=== PATIENT | female | born 1950 | race Caucasian/White ===

== ENCOUNTER 2023-06-14 12:07 | Emergency (ER) | payer OTHER, SELFPAY ==
[2023-06-14] VITALS (9 sets, daily range): BP systolic 129–173; BP diastolic 66–80; PULSE 59–95; RESP 18; TEMP 36.8–36.9; O2SAT 96–98; BMI 35.8
--- NOTE | ~2023-06-14 | CT_ITS ---
EXAMINATION: CT HEAD WITHOUT CONTRAST CLINICAL INFORMATION: Dizziness. COMPARISON: No relevant prior imaging. TECHNIQUE: Contiguous axial imaging was performed from the skull base to vertex without intravenous administration of contrast. This CT examination was performed using dose optimization techniques as appropriate, variously including the following: *Automated exposure control *Adjustment of mA and/or kV according to patient size (this includes techniques or standardized protocols for targeted exams where dose is matched to indication/reason for exam; i.e. extremities or head) *Use of iterative reconstruction technique DLP: 560 mGy-cm FINDINGS: There is no acute intracranial hemorrhage or abnormal extra-axial collection. No intracranial mass effect or midline shift. Lateral and third ventricles are normal. No hydrocephalus. Merritt-white matter differentiation is preserved and there is no evidence of acute territorial infarct. The calvarium and skull base are intact. Mastoid air cells and middle ear cavities are well aerated. Mild to moderate paranasal sinus disease primarily affecting the ethmoid air cells. CT/CT head/brain wo IV con IMPRESSION: Unremarkable CT scan of the head. No evidence of acute territorial infarct or hemorrhage.
--- NOTE | 2023-06-14 12:46 | ED.DIZZY ---
HPI - Dizziness General Chief Complaint: Dizziness Stated Complaint: dizzy spells Time Seen by Provider: 06/14/23 16:58 Source: patient Mode of arrival: ambulatory Limitations: no limitations History of Present Illness HPI Narrative: 72-year-old female with past medical history of vertigo presents to the ED for dizzy spells for the past 3 weeks describes as room spinning. Patient states she at times she will have ringing of the ear and dizziness while having change in head position. Patient denies any slurred speech, facial droop, paralysis of extremities, fever, chills, chest pain, shortness of breath, or any falls. Related Data Previous Rx's Medication Instructions Recorded cephalexin 500 mg capsule 500 mg PO QID 7 days #28 caps 06/14/23 meclizine 25 mg tablet 25 mg PO BID PRN dizziness #20 tabs 06/15/23 Allergies Allergy/AdvReac Type Severity Reaction Status Date / Time No Known Allergies Allergy Unverified 06/20/20 15:05 Review of Systems Review of Systems: Dizziness, ringing in the ears Yes all other systems are reviewed and are negative [facility] Social History Social History Alcohol intake: never Advance Directives: No Advance Directives Information Provided: No Physical Exam Vital Signs: Vital Signs: Last Vital Signs Temp 98.3 F 06/14/23 16:44 Pulse 72 06/14/23 19:31 Resp 18 06/14/23 16:44 BP 129/68 06/14/23 19:31 Pulse Ox 96 06/14/23 16:44 O2 Del Method Room Air 06/14/23 16:44 BMI result Body Mass Index 35.8 Const: General: cooperative, healthy appearing, comfortable, no acute distress, well developed, alert, awake and Physically active Orientation/consciousness: oriented to person, oriented to place, oriented to time and patient oriented x3 HEENT: Head: Yes normal to inspection, Yes No palpable skull fracture present, Yes normocephalic, Yes atraumatic and No abrasion Ears: hearing grossly normal bilaterally, external ears normal, TM's normal bilaterally, TM normal on the right, TM normal on the left, EAC's normal, mastoids normal and no periauricular adenopathy Eyes: Other: Positive for horizontal nystagmus to the left. Negative for vertigo nystagmus. General: appearance normal, both eyes and all related structures Neck: Neck: Yes normal visual inspection, Yes full ROM, Yes no lymphadenopathy, Yes no meningeal signs, Yes trachea midline, Yes supple, No anterior neck swelling and No tender Chest: Chest palpation & inspection: normal inspection of the chest and normal palpation of entire chest wall Resp: Effort & Inspection: normal respiratory effort and able to speak in complete sentences Auscultation: clear to auscultation bilaterally Cardio: Jugular venous distension: no JVD Heart sounds: S1 normal heart sound present and S2 normal heart sound present GI: Inspection: Yes normal to inspection and No abdominal wall ecchymosis Palpation (GI): Soft to palpation, not firm, nontender, no guarding and not rigid : General: Yes no CVA tenderness Back/Spine/Pelvis: Back: no CVA tenderness Skin: General skin exam: no rashes or lesions noted and elasticity normal Neuro: General: oriented to person, oriented to place, oriented to time, patient oriented x3, gait normal, tone normal, moves all extremities, Normal light touch and pain sensation, no meningeal signs, no focal motor deficits, CN's II-XI intact bilaterally and normal sensation to monofilament Extrem: General: Yes normal to inspection and Yes full ROM Psych: Appearance: grossly normal, well kempt and not disheveled Course Course Course Narrative: RME - 72 y/o female presenting to the ER evaluation of dizzy spells that have been happening for the last 3 weeks. Episodes last up to 6 hours, usually preceded by a headache. Feels like room is spinning. Has been feeling run down, no energy, body aches. Vomited Wednesday due to the dizziness. No hx vertigo. No tingling. +numbness in the hands in the mornings. Poor PO intake with 10 lbs weight loss in last 3 weeks. Plan: labs, EKG, CT head, orthostatic VS Medications Administered Discontinued Medications Generic Name Dose Route Start Last Admin Trade Name Freq PRN Reason Stop Dose Admin Sodium Chloride 1,000 mls @ 999 mls/hr 06/14/23 17:48 06/14/23 18:57 Ns IV 06/14/23 18:48 Infused .Q1H1M STA Infusion Sodium Chloride 1,000 mls @ 999 mls/hr 06/14/23 18:02 06/14/23 18:58 Ns IV 06/14/23 19:02 Infused .Q1H1M STA Infusion Meclizine HCl 50 mg 06/14/23 17:48 06/14/23 17:53 Meclizine Hcl 25 Mg Tablet PO 06/14/23 17:49 50 mg ONCE ONE Administration Medical Decision Making Medical Decision Making [facility] Narrative: 72-year-old female with history of vertigo in the past presents to ED for dizziness bilateral ringing in the ear intermittently for the past 3 weeks. Patient denies any neuro deficits. Patient denies any head trauma, fever, chills, chest pain, shortness of breath. NIH Score. Sitting to standing position systolic blood pressure dropped by 20. Will give IV fluids and meclizine re-evaluate. Patient's troponin negative. Head CT scan normal. EKG negative STEMI 7:54pm: After 2 L of fluid patient repeat orthostatic hypertension positive. While supine blood pressure systolic 173 when standing blood pressure systolic 123. Patient was recommended admission but patient wanted to sign out against medical advice knowning risk of , dehydration, heart failure, myocardial infarction and other concerning symptoms. Patient was informed to return to the ED immediately if symptoms worsen. Patient states she has to go home to take care of a puppy and will come back tomorrow for admission. Patient signed against medical advice. Differential Diagnosis Differential Diagnoses: The differential diagnosis associated with the presentation includes (Orthostatic hypotension, myocardial infarction, stroke, brain bleed) Admission/Observation Consideration of admission/observation: Escalation of care including admission/observation considered Lab Data 06/14/23 13:38 06/14/23 13:38 Labs: Lab Results 06/14/23 06/14/23 06/14/23 Range/Units 13:32 13:38 17:26 WBC 8.0 (4.8-10.8) X10*3/uL RBC 5.45 (4.20-5.50) X10*6/uL Hgb 14.9 (12.0-16.0) g/dl Hct 45.1 (37.0-47.0) % MCV 82.8 (80.0-98.0) fL MCH 27.3 (27.0-33.0) pg MCHC 33.0 (31.0-35.0) g/dl RDW 13.4 (11.0-16.0) % Plt Count 205 (160-400) X10*3/uL MPV 10.4 (9.4-12.3) fL Immature Gran % (Auto) 0.3 (0.0-0.4) % Neut % (Auto) 68.2 (45-73) % Lymph % (Auto) 18.3 L (20-40) % [place] % (Auto) 7.8 (2-11) % Eos % (Auto) 4.8 H (0-4) % Baso % (Auto) 0.6 (0-2) % Lymph # (Auto) 1.5 (1.2-4.9) X10*3/uL [place] # (Auto) 0.6 (0.1-1.2) X10*3/uL Eos # (Auto) 0.4 (0.0-0.4) X10*3/uL Baso # (Auto) 0.1 (0.0-0.2) X10*3/uL Abs Immat Gran (auto) 0.02 (0.00-0.03) X10*3/uL Absolute Neuts (auto) 5.4 (2.0-8.3) x10*3/uL Absolute Nucleated RBC 0.000 (0.0-0.012) X10*3/uL Nucleated RBC % (auto) 0.0 (0.0-0.2) /100WBC Sodium 142 (135-145) mmol/L Potassium 4.4 (3.3-5.1) mmol/L Chloride 107 (96-108) mmol/L Carbon Dioxide 28 (22-29) mmol/L Anion Gap 11 L (12-20) BUN 14 (9-16) mg/dL Creatinine 0.84 (0.5-1.4) mg/dL Estim Creat Clear Calc 74.6 Estimated GFR > 60 Random Glucose 116 H (60-115) mg/dL Calcium 9.6 (8.4-10.2) mg/dL Magnesium 2.1 (1.6-2.6) mg/dL Total Bilirubin 0.9 (0.0-1.0) mg/dL Direct Bilirubin 0.4 (0.0-0.5) mg/dL AST 20 (5-31) U/L ALT 17 (0-31) U/L Alkaline Phosphatase 125 H (39-117) U/L Troponin I High Sens < 2.7 (<3.5-17.0) ng/L Total Protein 6.8 (6.5-8.0) g/dL Albumin 4.0 (3.5-5.0) g/dL Urine Color Yellow Urine Appearance Clear Urine pH 5.5 (5.0-9.0) Ur Specific [place] 1.010 (1.005-1.025) Urine Protein Negative (Neg-Trace) mg/dL Urine Glucose (UA) Negative (Negative) mg/dL Urine Ketones Negative (Negative) mg/dL Urine Blood Negative (Negative) Urine Nitrite Negative (Negative) Ur Leukocyte Esterase Small (1+) H (Negative) Urine RBC 0-2 (0-2) /HPF Urine WBC 11-20 H (0-5) /HPF Ur Squamous Epith Cells 3-5 (0-2) /HPF Urine Bacteria Trace (None Seen) Hyaline Casts 0-2 (0-2) /LPF COVID-19 (ARMANDO) Negative (Negative) COVID-19 Clin Com See Note Independent Interpretation I performed an independent interpretation of an: EKG (Normal sinus rhythm. Ventricular rate 62. TX interval 194. Caris 84. QTC 414. Negative STEMI) and CT Scan Radiology Impression Discussion of test interpretation with radiology: I have reviewed the radiologist's reading. External Record Review External record reviewed: Other (prior visits) Discharge Plan Discharge Clinical Impression: Orthostatic hypotension Patient Disposition: Left Against Medical Advice Instructions: Urinary Tract Infection in Women (ED), Hypotension (ED), Dizziness (ED) Additional Instructions: You are signing out against medical advice. Return to the ED immediately for any dizziness, slurred speech, facial droop, paralysis of extremities, chest pain, shortness of breath, abdominal pain, loss of vision, inability to walk, palpitations, flank pain, fever, chills, hematuria. or any other concerning symptoms. Please follow-up with your primary care provider immediately. Prescriptions: New cephalexin 500 mg capsule 500 mg PO QID 7 Days Qty: 28 0RF No Action meclizine 25 mg tablet 25 mg PO BID PRN (Reason: dizziness) Qty: 20 0RF Stand Alone Forms: Against Medical Advice Interventions: ED Discharge Assessment Last Done: 06/14/23 20:10 Discharge Date/Time: 06/14/23 20:12 Print Language: Georgian
--- NOTE | 2023-06-14 12:47 | ECG_ITS ---
Test Reason : dizziness Blood Pressure : / mmHG Vent. Rate : 062 BPM Atrial Rate : 062 BPM P-R Int : 194 ms QRS Dur : 084 ms QT Int : 408 ms P-R-T Axes : 020 -16 086 degrees QTc Int : 414 ms Normal sinus rhythm Inferior infarct , age undetermined Cannot rule out Anterior infarct , age undetermined Abnormal ECG When compared with ECG of 23-NOV-2012 12:32, Inferior infarct is now Present Referred By: Chelo Bonner Electronically Signed By:CIARRA ESTRELLA
[2023-06-14 13:43] LABS: MANUAL DIFF FLAG NO
[2023-06-14 13:49] LABS: Basophils Absolute Auto 0.1 X10*3/uL (0.0-0.2); Basophils Percent Auto 0.6 % (0-2); Eosinophils Absolute Auto 0.4 X10*3/uL (0.0-0.4); Eosinophils Percent Auto 4.8 % (0-4); Hematocrit 45.1 % (37.0-47.0); Hemoglobin 14.9 g/dl (12.0-16.0); Imm Gran Abs Auto 0.02 X10*3/uL (0.00-0.03); Imm Gran Pct Auto 0.3 % (0.0-0.4); Lymphocytes Absolute Auto 1.5 X10*3/uL (1.2-4.9); Lymphocytes Percent Auto 18.3 % (20-40); Mean Corpuscular Hemoglobin 27.3 pg (27.0-33.0); Mean Corpuscular Volume 82.8 fL (80.0-98.0); Mean Platelet Volume 10.4 fL (9.4-12.3); Monocytes Absolute Auto 0.6 X10*3/uL (0.1-1.2); Monocytes Percent Auto 7.8 % (2-11); Neutrophils Absolute Auto 5.4 x10*3/uL (2.0-8.3); Neutrophils Percent Auto 68.2 % (45-73); Platelet Count 205 X10*3/uL (160-400); Red Blood Count 5.45 X10*6/uL (4.20-5.50); Red Cell Distribution Width 13.4 % (11.0-16.0)
[2023-06-14 13:59] LABS: IDNOW Serial# 08D9AD1C
[2023-06-14 14:00] LABS: COVID-19 Test Negative (Negative)
[2023-06-14 14:01] LABS: Alanine Aminotransferase 17 U/L (0-31); Alkaline Phosphatase 125 U/L (39-117); Anion Gap 11 (12-20); Aspartate Amino Transferase 20 U/L (5-31); Bilirubin Direct 0.4 mg/dL (0.0-0.5); Bilirubin Total 0.9 mg/dL (0.0-1.0); Blood Urea Nitrogen 14 mg/dL (9-16); Calcium 9.6 mg/dL (8.4-10.2); Carbon Dioxide 28 mmol/L (22-29); Chloride 107 mmol/L (96-108); Creatinine Clr Calc Pharmacy 74.6; Estimated Glomerular Filt Rate > 60; Glucose Random 116 mg/dL (60-115); Magnesium 2.1 mg/dL (1.6-2.6); Potassium 4.4 mmol/L (3.3-5.1); Sodium 142 mmol/L (135-145); Total Protein 6.8 g/dL (6.5-8.0)
[2023-06-14 14:08] LABS: Troponin-I High Sensitivity < 2.7 ng/L (<3.5-17.0)
[2023-06-14 17:34] LABS: Appearance Urine Clear; Color Urine Yellow; Glucose Urine UA Negative (Negative); Leukocyte Esterase Urine Small (1+) (Negative); Nitrite Urine Negative (Negative); PH 5.5 (5.0-9.0); UMIC TRIGGER UACC YES; Urine Blood Negative (Negative); Urine Ketones Negative (Negative); Urine Protein Negative (Neg-Trace)
[2023-06-14 17:37] LABS: Bacteria Urine Trace (None Seen); Hyaline Casts Urine 0-2 /LPF (0-2); RBC Urine 0-2 /HPF (0-2); UACC Culture Trigger YES
[2023-06-14] MEDS: Meclizine HCl 25 MG TABLET 50 MG PO (17:53)
[2023-06-14] MEDS: 0.9 % Sodium Chloride 1,000 ML 999 ML IV ×2 (17:54→18:20)
--- NOTE | 2023-06-14 19:38 | PC.NURSE ---
Orthostatic vital signs completed and entered into EMR. SUREKHA Peguero aware of results.
== END 2023-06-14 20:12 | disposition left against medical advice (07) ==
PROVIDERS: Physician Assistant; Emergency Provider Emergency Medicine; PCP Internal Medicine
DX: I95.1 Orthostatic hypotension (principal); R42 Dizziness and giddiness; H93.19 Tinnitus, unspecified ear; R94.31 Abnormal electrocardiogram [ECG] [EKG]; Z20.822 Contact with and (suspected) exposure to COVID-19; Z20.828 Contact with and (suspected) exposure to other viral communicable diseases; Z79.899 Other long term (current) drug therapy
CPT/HCPCS: 36415; 70450; 80048; 80076; 81001; 83735; 84484; 85025; 87086; 87635; 93005; 96360; 99284; 99285

== ENCOUNTER 2023-06-15 07:50 | Emergency (ER) | payer OTHER, MEDICARE, MEDICAID, SELFPAY ==
[2023-06-15 07:55] VITALS: BP 178/85; PULSE 68; RESP 18; TEMP 37; O2SAT 97; BMI 37.6
--- NOTE | 2023-06-15 07:59 | ED.GENADULT ---
HPI - General Adult General Chief complaint: General Medical Stated complaint: Low blood pressure Time Seen by Provider: 06/15/23 07:59 Source: patient and old records reviewed Mode of arrival: ambulatory Limitations: no limitations History of Present Illness HPI narrative: 72 yo female with history of vertigo presents back to the ER after leaving AMA last night. She was seen for dizzy spells yesterday. She had a workup including a negative head CT, unremarkable EKG and labs. She did have a 50 point drop in her SBP from 170 to 120 with standing. Admission was recommended however she declined and left AMA due to animal care at home. she denies any recurrent dizzy spells. She still reports some brain fog she denies any chest pain, shortness of breath, nausea, vomiting, abdominal pain, weakness, numbness, tingling. She states the dizzy spells have been on and off for the last 3 weeks. The last episode was on Wednesday MD complaint: intermittent dizziness Onset (ago): week(s) Pain Consistency: intermittent Relieving factors: none Exacerbating factors: none Associated symptoms: denies other symptoms Treatments prior to arrival: none Related Data Previous Rx's Medication Instructions Recorded cephalexin 500 mg capsule 500 mg PO QID 7 days #28 caps 06/14/23 meclizine 25 mg tablet 25 mg PO BID PRN dizziness #20 tabs 06/15/23 Allergies Allergy/AdvReac Type Severity Reaction Status Date / Time No Known Allergies Allergy Unverified 06/20/20 15:05 Review of Systems Review of Systems: Yes all other systems are reviewed and are negative [facility] Social History Social History Alcohol intake: never Advance Directives: No Advance Directives Information Provided: No Physical Exam ED Vital Signs: Vital Signs - 24 hr 06/15/23 07:55 06/15/23 08:39 06/15/23 08:39 Temperature 98.6 F Pulse Rate 68 57 57 Respiratory Rate 18 16 Blood Pressure 178/85 H 152/68 H 152/68 H Pulse Oximetry 97 96 Oxygen Delivery Method Room Air Room Air 06/15/23 08:39 06/15/23 08:41 Temperature Pulse Rate 69 72 Respiratory Rate Blood Pressure 156/76 H 151/77 H Pulse Oximetry Oxygen Delivery Method BMI result Body Mass Index 37.6 Appearance: Alert. Oriented X3. No acute distress. Head: normocephalic, atraumatic. Eyes: Pupils equal, round and reactive to light. no nystagmus. ENT: Pharynx normal. No tonsillar swelling or exudate. Neck: Normal inspection. Neck supple. CVS: Normal heart rate and rhythm. Pulses normal. Respiratory: No respiratory distress. Breath sounds normal. Abdomen: Soft and nontender. +BS x4 Skin: Skin warm and dry. Normal skin color. Normal skin turgor. No rashes. Extremities: No lower extremity edema. No joint swelling. Neuro/psych: Oriented X 3. No motor deficit. No sensory deficit. CN II-XII intact. Normal speech and cognition. Steady gait and nonfocal. Normal [id number] and [id number] bilaterally Medical Decision Making Medical Decision Making MDM Narrative: 72-year-old female presents to the ER for evaluation of orthostatic hypotension that was found yesterday. She had 50 point drop in her systolic blood pressures once going from lying to standing. Today she is hemodynamically stable with negative orthostatic vital signs. She still reports some brain fog but otherwise is nonfocal has NIH of 0. At this time she is stable for discharge home and follow-up with her primary care doctor for further evaluation and treatment. She was given strict return precautions. Will give trial of meclizine for her dizziness episodes. None in the last few days. Differential Diagnosis Differential Diagnoses: The differential diagnosis associated with the presentation includes Orthostatic hypotension, vertigo, electrolyte abnormality, dehydration, cardiac arrhythmia, less likely cerebellar stroke Admission/Observation Consideration of admission/observation: Escalation of care including admission/observation considered External Record Review External record reviewed: Outpatient record, Prior outpatient labs and Prior outpatient radiology Prescription Management I considered prescription management with: Other (meclizine) Critical Care Time Critical Care Time Critical Care Time: No Discharge Plan Discharge Clinical Impression: Dizziness Patient Disposition: Home, Self-Care Instructions: Dizziness (ED) Additional Instructions: Her blood pressures today were the same in all positions. This is reassuring. You not require hospitalization at this time Recommend trial of meclizine as needed for dizzy spells. When you change positions do so slowly. Make sure eating and drinking well at home. Rest and stay hydrated. Follow-up with your doctor. If you develop new or worsening symptoms call 911 or come back to the ER for further evaluation. Prescriptions: New meclizine 25 mg tablet 25 mg PO BID PRN (Reason: dizziness) Qty: 20 0RF No Action cephalexin 500 mg capsule 500 mg PO QID 7 Days Qty: 28 0RF
[2023-06-15 08:39] VITALS: BP 152/68; BP 156/76; PULSE 57; PULSE 69; RESP 16; O2SAT 96
[2023-06-15 08:41] VITALS: BP 151/77; PULSE 72
== END 2023-06-15 09:22 | disposition home or self-care (01) ==
PROVIDERS: Emergency Provider Emergency Medicine; PCP Internal Medicine
DX: R42 Dizziness and giddiness (principal)
CPT/HCPCS: 99283

== ENCOUNTER 2025-02-17 05:54 | Emergency (ER) | payer OTHER, SELFPAY ==
--- NOTE | ~2025-02-17 | CT_ITS ---
CLINICAL HISTORY: fall +head strike CT head without contrast Comparison: CT/SR - CT HEAD/BRAIN WO IV CON - 06/14/23 13:08 EDT Findings: No evidence of acute territorial infarct. No significant white matter disease. Mild volume loss is noted. No hydrocephalus. No hemorrhage, mass effect, mass lesion or midline shift. No abnormal extra-axial fluid. No calvarial fracture. Paranasal sinuses and mastoid air cells are clear. Impression: No evidence of an acute intracranial process. Chronic changes as detailed. This document has been electronically signed by: Cedric Freeman MD on 02/17/2025 07:52:42
--- NOTE | ~2025-02-17 | CT_ITS ---
CLINICAL HISTORY: fall +head strike CT cervical spine without contrast Comparison: None Findings: There is straightening of the normal cervical lordosis. No fracture or acute malalignment. Multilevel degenerative changes with disc space narrowing throughout the cervical spine. The facet joints are normally imbricated. No prevertebral soft tissue edema. Lung apicies demonstrate no acute process. Multiple thyroid nodules noted. Impression: Multilevel degenerative changes without evidence of acute fracture or acute malalignment. Multiple thyroid nodules. Dedicated outpatient thyroid ultrasound recommended if not already performed elsewhere. This document has been electronically signed by: Cedric Freeman MD on 02/17/2025 07:30:22
[2025-02-17 06:00] VITALS: BP 145/73; PULSE 72; RESP 18; TEMP 36.8; O2SAT 98; BMI 36.3
--- NOTE | 2025-02-17 06:23 | ED.FALL ---
HPI - Fall General Chief Complaint: Fall Stated Complaint: fall w/ head strike few weeks ago Time Seen by Provider: 02/17/25 06:22 Source: patient Mode of arrival: ambulatory Limitations: no limitations History of Present Illness ED Provider: Dr. Donnie Wolf HPI Narrative: 74-year-old female with a history of hyperlipidemia who presents emergency department for evaluation of persistent headaches after head injury which occurred 4 weeks prior. The patient states that she walked into her garage, tripped and fell striking the left side of her head on a cement wall. She states she felt a cracking sensation in her head but had no loss of consciousness. She states that since that fall she has had daily headaches which will last hours, are relieved by aspirin 325 mg orally, associated with nausea without vomiting, occasional blurred vision. She denied numbness, weakness, feeling off balance. The patient was seen at an urgent care clinic yesterday and they advised her to go to the emergency department to get a CT scan of the brain to rule out a possible subdural hematoma. Therefore the patient came to the emergency department to be seen today. Patient has no headache at this time. She denied fever, chills, rhinorrhea, sore throat, cough, chest pain, shortness of breath, myalgias, arthralgias Related Data Previous Rx's ?Medication ?Instructions ?Recorded cephalexin 500 mg capsule 500 mg PO QID 7 days #28 caps 06/14/23 meclizine 25 mg tablet 25 mg PO BID PRN dizziness #20 tabs 06/15/23 Allergies Allergy/AdvReac Type Severity Reaction Status Date / Time No Known Allergies Allergy Verified 02/17/25 06:05 Review of Systems Review of Systems: Yes all other systems are reviewed and are negative [facility] Past Medical History [facility] Narrative: Social history: She denies tobacco, alcohol and drug use Social History Social History Alcohol intake: never Smoked in Last 30 Days: No Use of substances other than those prescribed or required for medical reasons: No Advance Directives: No Advance Directives Information Provided: No Physical Exam Vital Signs: Vital Signs: Last Vital Signs Temp 98.2 F 02/17/25 09:23 Pulse 65 02/17/25 09:23 Resp 18 02/17/25 09:23 BP 151/68 H 02/17/25 09:23 Pulse Ox 96 02/17/25 09:23 O2 Del Method Room Air 02/17/25 09:23 BMI result Body Mass Index 36.3 Vital signs revealed an elevated blood pressure 145/73 otherwise unremarkable Exam: General: Awake, alert in no distress Head: Normocephalic, atraumatic EENT: PERRL, Lids normal, sclera normal, conjunctiva normal, nose normal , ears normal, throat without erythema or exudates Neck: Supple, no adenopathy Lung: breath sounds symmetric, no wheezing, rales or rhonchi Chest: symmetric movement, nontender Heart: regular rate and rhythm, normal S1, S2 no murmurs or rubs Abdomen: soft, non-tender, nondistended, normal bowel sounds Back: no vertebral tenderness, no CVAT Extremities: no deformities, moves all extremities symmetrically Neuro: General: Awake, alert, oriented, normal speech Cranial nerves: Cranial nerves intact Strength: 5/5 symmetric strength, moves all extremities symmetrically Cerebellar: Normal prdwby-qu-whar-to-finger, rapid finger movement Psych: Pleasant, cooperative Medical Decision Making Medical Decision Making MDM Narrative: 74-year-old female with a history of hyperlipidemia who presents emergency department for evaluation of persistent headaches after head injury which occurred 4 weeks prior. The patient states that she walked into her garage, tripped and fell striking the left side of her head on a cement wall. She states she felt a cracking sensation in her head but had no loss of consciousness. She states that since that fall she has had daily headaches which will last hours, are relieved by aspirin 325 mg orally, associated with nausea without vomiting, occasional blurred vision. She denied numbness, weakness, feeling off balance. The patient was seen at an urgent care clinic yesterday and they advised her to go to the emergency department to get a CT scan of the brain to rule out a possible subdural hematoma. Therefore the patient came to the emergency department to be seen today. Patient has no headache at this time. Vital signs revealed an elevated blood pressure of 145/73, otherwise unremarkable. Physical examination was unremarkable. Differential diagnosis: ?Includes but is not limited to skull fracture, intracranial bleed, post concussion headaches, giant cell arteritis, anemia, electrolyte abnormalities Course: Given the patient's persistent headaches after a closed head injury, I did obtain CT head and cervical spine. There are no acute findings to explain the patient's headaches. patient's ESR and CRP were only been a elevated at 40 deaf but she has 10 cell arteritis is the cause of her headaches. At this time I suspect the patient has a postconcussion syndrome from her head injury 4 weeks prior and I did discuss this with her. Patient was advised to continue taking her himt-uax-ydowoms medications as needed for her headache. She was given printed and verbal instructions on postconcussion syndrome and discharged home. The CT scan of cervical spine did reveal multiple thyroid nodules, this was a known condition for the patient she states that she has had outpatient thyroid ultrasound was told that these nodules were benign. I did advise her to review the CT scan report with her PCP as well. Admission/Observation Consideration of admission/observation: Escalation of care including admission/observation considered ( yes) Lab Data MDM Lab Attestation statement: I reviewed the patient's lab results. my independent interpretation the patient's laboratory evaluation is as follows: CBC was normal. CRP was mildly elevated at 21. glucose elevated 175. AST, ALT and alk-phos were elevated 40, 42 and 159-I do not think that these are significant elevations and not related to your headache. CRP was slightly elevated at 1.23. Given the minimal elevations in the CRP and ESR I do not think that she has giant cell arteritis cyst because her headache 02/17/25 07:10 02/17/25 07:10 Labs: Lab Results 02/17/25 Range/Units 07:10 WBC 8.4 (4.8-10.8) X10*3/uL RBC 5.10 (4.20-5.50) X10*6/uL Hgb 13.9 (12.0-16.0) g/dl Hct 42.6 (37.0-47.0) % MCV 83.5 (80.0-98.0) fL MCH 27.3 (27.0-33.0) pg MCHC 32.6 (31.0-35.0) g/dl RDW 13.2 (11.0-16.0) % Plt Count 188 (160-400) X10*3/uL MPV 10.2 (9.4-12.3) fL Immature Gran % (Auto) 0.4 (0.0-0.4) % Neut % (Auto) 68.3 (45-73) % Lymph % (Auto) 17.8 L (20-40) % Mclennan % (Auto) 7.5 (2-11) % Eos % (Auto) 5.2 H (0-4) % Baso % (Auto) 0.8 (0-2) % Lymph # (Auto) 1.5 (1.2-4.9) X10*3/uL Mclennan # (Auto) 0.6 (0.1-1.2) X10*3/uL Eos # (Auto) 0.4 (0.0-0.4) X10*3/uL Baso # (Auto) 0.1 (0.0-0.2) X10*3/uL Abs Immat Gran (auto) 0.03 (0.00-0.03) X10*3/uL Absolute Neuts (auto) 5.7 (2.0-8.3) x10*3/uL Absolute Nucleated RBC 0.000 (0.0-0.012) X10*3/uL Nucleated RBC % (auto) 0.0 (0.0-0.2) /100WBC ESR 21 H (0-20) MM/HR Sodium 142 (135-145) mmol/L Potassium 4.4 (3.3-5.1) mmol/L Chloride 108 (96-108) mmol/L Carbon Dioxide 26 (22-29) mmol/L Anion Gap 12 (12-20) BUN 18 H (9-16) mg/dL Creatinine 0.75 (0.5-1.4) mg/dL Estim Creat Clear Calc 81.8 Estimated GFR > 60 Random Glucose 175 H (60-115) mg/dL Calcium 8.9 D (8.4-10.2) mg/dL Total Bilirubin 0.5 (0.0-1.0) mg/dL AST 40 H (5-31) U/L ALT 32 H (0-31) U/L Alkaline Phosphatase 159 H (39-117) U/L C-Reactive Protein 1.23 H (< or = 0.50) mg/dL Total Protein 6.5 (6.5-8.0) g/dL Albumin 3.7 (3.5-5.0) g/dL Radiology Impression Discussion of test interpretation with radiology: I have reviewed the radiologist's reading. Radiologist Impression: CT head without contrast Comparison: CT/SR - CT HEAD/BRAIN WO IV CON - 06/14/23 13:08 EDT Findings: No evidence of acute territorial infarct. No significant white matter disease. Mild volume loss is noted. No hydrocephalus. No hemorrhage, mass effect, mass lesion or midline shift. No abnormal extra-axial fluid. No calvarial fracture. Paranasal sinuses and mastoid air cells are clear. Impression: No evidence of an acute intracranial process. Chronic changes as detailed. This document has been electronically signed by: Cedric Freeman MD on 02/17/2025 07:52:42 CT cervical spine without contrast Comparison: None Findings: There is straightening of the normal cervical lordosis. No fracture or acute malalignment. Multilevel degenerative changes with disc space narrowing throughout the cervical spine. The facet joints are normally imbricated. No prevertebral soft tissue edema. Lung apicies demonstrate no acute process. Multiple thyroid nodules noted. Impression: Multilevel degenerative changes without evidence of acute fracture or acute malalignment. Multiple thyroid nodules. Dedicated outpatient thyroid ultrasound recommended if not already performed elsewhere. This document has been electronically signed by: Cedric Freeman MD on 02/17/2025 07:30:22 Chronic Conditions Patient?s care impacted by: Other ( Hyperlipidemia) Discharge Plan Discharge Clinical Impression: CHI (closed head injury), Post-concussion syndrome Patient Disposition: Home, Self-Care Instructions: Post Concussion Syndrome (ED) Additional Instructions: The CT scan of your head did not reveal any skull fracture or bleeding in the brain. The CT of your neck revealed arthritis of the neck but no broken bones. You do have multiple thyroid nodules but you have already been evaluated for this so you can ignore this finding. Your blood work did not reveal any specific abnormalities to explain your headache. At this time I believe that your headache may be related to your head injury which cause you to have a concussion. Sometimes after a concussion you can have symptoms like headaches that can last 4-6 weeks. Continue to take your [id number] pain medications as needed for your headache. Follow-up with your doctor in 2 days. Please return to the emergency department if your symptoms get worse or if you develop any symptoms that are concerning to you. Prescriptions: No Action cephalexin 500 mg capsule 500 mg PO QID 7 Days Qty: 28 0RF meclizine 25 mg tablet 25 mg PO BID PRN (Reason: dizziness) Qty: 20 0RF Interventions: ED Discharge Assessment Last Done: 02/17/25 09:23 Discharge Date/Time: 02/17/25 09:23 Print Language: Tajik
[2025-02-17 07:15] LABS: MANUAL DIFF FLAG NO
[2025-02-17 07:24] LABS: Basophils Absolute Auto 0.1 X10*3/uL (0.0-0.2); Basophils Percent Auto 0.8 % (0-2); Eosinophils Absolute Auto 0.4 X10*3/uL (0.0-0.4); Eosinophils Percent Auto 5.2 % (0-4); Hematocrit 42.6 % (37.0-47.0); Hemoglobin 13.9 g/dl (12.0-16.0); Imm Gran Abs Auto 0.03 X10*3/uL (0.00-0.03); Imm Gran Pct Auto 0.4 % (0.0-0.4); Lymphocytes Absolute Auto 1.5 X10*3/uL (1.2-4.9); Lymphocytes Percent Auto 17.8 % (20-40); Mean Corpuscular HGB Conc 32.6 g/dl (31.0-35.0); Mean Corpuscular Hemoglobin 27.3 pg (27.0-33.0); Mean Corpuscular Volume 83.5 fL (80.0-98.0); Mean Platelet Volume 10.2 fL (9.4-12.3); Monocytes Absolute Auto 0.6 X10*3/uL (0.1-1.2); Monocytes Percent Auto 7.5 % (2-11); Neutrophils Absolute Auto 5.7 x10*3/uL (2.0-8.3); Neutrophils Percent Auto 68.3 % (45-73); Platelet Count 188 X10*3/uL (160-400); Red Cell Distribution Width 13.2 % (11.0-16.0); White Blood Count 8.4 X10*3/uL (4.8-10.8)
[2025-02-17 07:29] LABS: Alanine Aminotransferase 32 U/L (0-31); Albumin Level 3.7 g/dL (3.5-5.0); Alkaline Phosphatase 159 U/L (39-117); Anion Gap 12 (12-20); Aspartate Amino Transferase 40 U/L (5-31); Bilirubin Total 0.5 mg/dL (0.0-1.0); Blood Urea Nitrogen 18 mg/dL (9-16); C Reactive Protein 1.23 mg/dL (< or = 0.50); Calcium 8.9 mg/dL (8.4-10.2); Carbon Dioxide 26 mmol/L (22-29); Chloride 108 mmol/L (96-108); Creatinine Clr Calc Pharmacy 81.8; Estimated Glomerular Filt Rate > 60; Glucose Random 175 mg/dL (60-115); Potassium 4.4 mmol/L (3.3-5.1); Sodium 142 mmol/L (135-145); Total Protein 6.5 g/dL (6.5-8.0)
[2025-02-17 08:01] LABS: Erythrocyte Sedimentation Rate 21 MM/HR (0-20)
[2025-02-17 09:22] VITALS: BP 151/68; PULSE 65; RESP 18; TEMP 36.8; O2SAT 96
[2025-02-17 09:23] VITALS: BP 151/68; PULSE 65; RESP 18; TEMP 36.8; O2SAT 96
== END 2025-02-17 09:23 | disposition home or self-care (01) ==
PROVIDERS: Emergency Provider Emergency Medicine Emergency Medical Services
DX: F07.81 Postconcussional syndrome (principal); S09.90XA Unspecified injury of head, initial encounter; W01.198A Fall on same level from slipping, tripping and stumbling with subsequent striking against other object, initial encounter; Y93.9 Activity, unspecified; Y92.89 Other specified places as the place of occurrence of the external cause; Y99.9 Unspecified external cause status; R51.9 Headache, unspecified
CPT/HCPCS: 36415; 70450; 72125; 80053; 85025; 85652; 86140; 99284

== ENCOUNTER → 2025-02-17 06:45 | Outpatient (BNV) | payer MEDICARE, MEDICAID, SELFPAY | PROVIDERS: Emergency Provider Emergency Medicine Emergency Medical Services; Visit Provider Radiology Vascular & Interventional Radiology | DX: M50.30 Other cervical disc degeneration, unspecified cervical region (principal); E04.2 Nontoxic multinodular goiter; S09.90XA Unspecified injury of head, initial encounter; W19.XXXA Unspecified fall, initial encounter | CPT/HCPCS: 70450; 72125 ==